=== PATIENT | male | born 1955 ===

== ENCOUNTER 2025-01-20 16:04 | Inpatient (IN) ==
[2025-01-20] MEDS ORDERED: IOPAMIDOL 100 ML BOTTLE IV ONE (16:05)
[2025-01-20] MEDS: LACTATED RINGERS 1,000 ML IV ONE (16:32)
[2025-01-20] MEDS: IPRATROPIUM/ALBUTEROL 3 ML AMPUL.NEB NEB ONE (17:00)
[2025-01-20] MEDS: VANCOMYCIN 1,000 MG in 0.9 % SODIUM CHLORIDE 250 ML IV ONE (17:01)
[2025-01-20] MEDS: VANCOMYCIN PER PHARMACY IV ONE (17:01)
[2025-01-20 17:07] LABS: Basophils # (Auto) 0.01 K/mcL (0.00-0.30); Basophils % (Auto) 0.1 % (0.0-2.0); Eosinophils # (Auto) 0.02 K/mcL (0.00-0.70); Eosinophils % (Auto) 0.2 % (0.0-7.0); Hematocrit 37.5 % (40.1-51.0); Lymphocytes # (Auto) 0.68 K/mcL (1.50-4.80); Lymphocytes % (Auto) 5.8 % (15.5-49.0); Mean Cell Volume 100.5 fL (80.0-100.0); Mean Platelet Volume 10.5 fL (8.8-12.5); Monocytes # (Auto) 0.79 K/mcL (0.10-0.90); Monocytes % (Auto) 6.7 % (1.0-12.0); Neutrophils % (Auto) 85.9 % (38.0-78.0); Platelet Count 327 K/mcL (140-440); RBC 3.73 M/mcL (4.63-6.08); WBC 11.8 K/mcL (4.5-11.0)
[2025-01-20] MEDS: MAGNESIUM SULFATE 2 GM/50 ML BAG IV ONE (17:08)
[2025-01-20] MEDS: CEFEPIME 2 GM VIAL IV ONE (17:18)
[2025-01-20] MEDS: VANCOMYCIN 750 MG in 0.9 % SODIUM CHLORIDE 250 ML IV ONE (17:18)
[2025-01-20 17:22] LABS: ALT/SGPT 25 U/L (<40); AST/SGOT 57 U/L (<40); Albumin 3.3 gm/dL (3.2-5.2); Alkaline Phosphatase 111 U/L (39-117); Bilirubin,Total 0.5 mg/dL (0.1-1.0); Blood Urea Nitrogen 25 mg/dL (8-23); Calcium 8.6 mg/dL (8.6-10.4); Carbon Dioxide 23 mmol/L (22-30); Chloride 110 mmol/L (96-108); Globulin 3.4 gm/dL (2.2-3.7); Glomerular Filtration Rate 90; Glucose 120 mg/dL (70-105); Potassium 3.4 mmol/L (3.3-5.1); Sodium 146 mmol/L (133-145)
[2025-01-20] MEDS: 0.9 % SODIUM CHLORIDE 500 ML IV ONE (18:00)
[2025-01-20 18:23] LABS: Appearance,Urine Clear (Clear); Bilirubin,Urine Negative (Negative); Color,Urine Yellow; Glucose,Urine (UA) Negative (Negative); Ketones,Urine 15 mg/dL (Negative); Leukocyte Esterase,Urine Negative /uL (Negative); Mucus,Urine Few /hpf; Nitrate,Urine Negative (Negative); Protein,Urine 100 mg/dL (Negative); Specific Gravity,Urine 1.025 (1.000-1.035); Urine Blood Small ery/mcL (Negative); Urine RBC 18 /hpf (0-3); Urine Squamous Epithelial Cell < 1 /hpf (0-4); Urine WBC 5 /hpf (0-4)
[2025-01-20 20:10] LABS: C-Reactive Protein 5.86 mg/dL (0.03-0.80)
[2025-01-20] MEDS ORDERED: LACTULOSE 20 GM/30 ML ORAL.SOL PO PRN (20:36)
[2025-01-20] MEDS ORDERED: SENNOSIDES 1 TABLET PO PRN (20:36)
[2025-01-20] MEDS ORDERED: ONDANSETRON 4 MG/2 ML VIAL IV PRN (20:36)
[2025-01-20] MEDS: LACTATED RINGERS 1,000 ML IV SCH (20:49)
[2025-01-20] MEDS: 0.9 % SODIUM CHLORIDE 10 ML SYRINGE IV SCH (20:49)
[2025-01-20] MEDS: HEPARIN 5,000 UNIT/ML VIAL SQ SCH (21:21)
[2025-01-20] MEDS: ACETAMINOPHEN 650 MG/65 ML BAG IV ONE (21:22)
[2025-01-20] MEDS: methylPREDNISolone SOD SUCC 125 MG/2 ML VIAL IV ONE (21:54)
[2025-01-20] MEDS: morphine 2 MG/ML VIAL IV PRN (22:58)
[2025-01-20] MEDS ORDERED: IPRATROPIUM/ALBUTEROL 3 ML AMPUL.NEB NEB SCH (23:00)
[2025-01-20] MEDS: IPRATROPIUM/ALBUTEROL 3 ML AMPUL.NEB NEB SCH (23:11)
[2025-01-21] MEDS: HYDROmorphone 1 MG/ML SYRINGE IV ONE (04:47)
[2025-01-21] MEDS: HYDROmorphone 1 MG/ML SYRINGE ONE (05:20)
[2025-01-21] MEDS: IPRATROPIUM/ALBUTEROL 3 ML AMPUL.NEB NEB PRN (05:50)
[2025-01-21 06:48] LABS: Basophils # (Auto) 0.03 K/mcL (0.00-0.30); Basophils % (Auto) 0.2 % (0.0-2.0); Eosinophils # (Auto) 0.02 K/mcL (0.00-0.70); Eosinophils % (Auto) 0.1 % (0.0-7.0); Hemoglobin 10.6 g/dL (13.7-17.5); Lymphocytes # (Auto) 0.86 K/mcL (1.50-4.80); Lymphocytes % (Auto) 6.2 % (15.5-49.0); Mean Cell Volume 105.3 fL (80.0-100.0); Mean Corpuscular HGB Conc 31.2 g/dL (31.0-36.0); Mean Platelet Volume 9.7 fL (8.8-12.5); Monocytes # (Auto) 1.04 K/mcL (0.10-0.90); Monocytes % (Auto) 7.5 % (1.0-12.0); Neutrophils % (Auto) 85.1 % (38.0-78.0); Platelet Count 334 K/mcL (140-440); RBC 3.23 M/mcL (4.63-6.08); Red Cell Distribution Width 13.3 % (11.5-14.5)
[2025-01-21 07:26] LABS: ALT/SGPT 22 U/L (<40); AST/SGOT 53 U/L (<40); Albumin 2.9 gm/dL (3.2-5.2); Alkaline Phosphatase 93 U/L (39-117); Bilirubin,Direct 0.3 mg/dL (<0.3); Bilirubin,Total 0.4 mg/dL (0.1-1.0); Blood Urea Nitrogen 24 mg/dL (8-23); Calcium 8.3 mg/dL (8.6-10.4); Carbon Dioxide 21 mmol/L (22-30); Chloride 114 mmol/L (96-108); Globulin 2.9 gm/dL (2.2-3.7); Glomerular Filtration Rate 101; Glucose 85 mg/dL (70-105); Lactate Dehydrogenase 518 U/L (135-225); Phosphorous 2.1 mg/dL (2.5-4.5); Potassium 3.4 mmol/L (3.3-5.1); Sodium 148 mmol/L (133-145); Triglycerides 81 mg/dL (<150); Uric Acid 4.4 mg/dL (2.5-8.0)
[2025-01-21] MEDS: DEXAMETHASONE 10 MG/ML VIAL IV SCH (08:01)
[2025-01-21] MEDS: PANTOPRAZOLE 40 MG VIAL IV SCH (08:02)
[2025-01-21] MEDS: 0.45 % SODIUM CHLORIDE 1,000 ML IV SCH (08:29)
[2025-01-21] MEDS ORDERED: methylPREDNISolone SOD SUCC 125 MG/2 ML VIAL IV SCH (09:00)
[2025-01-21] MEDS ORDERED: DOXYCYCLINE HYCLATE 100 MG TABLET.ORL PO SCH (09:00)
[2025-01-21] MEDS: REMDESIVIR 100 MG in 0.9 % SODIUM CHLORIDE 250 ML IV SCH (10:51)
[2025-01-21] MEDS: morphine 2 MG/ML VIAL IV PRN (11:58)
[2025-01-21] MEDS: HYDROcodone/APAP 5/325MG TABLET PO PRN (20:51)
[2025-01-21] MEDS: LISINOPRIL 2.5 MG TABLET PO SCH (20:51)
[2025-01-21] MEDS: GABAPENTIN 300 MG CAPSULE PO SCH (20:51)
[2025-01-21] MEDS: QUEtiapine 100 MG TABLET PO SCH (20:52)
[2025-01-21] MEDS: morphine 2 MG/ML VIAL IV ONE (22:15)
[2025-01-21] MEDS: LORazepam 2 MG/ML VIAL IV ONE (22:15)
[2025-01-21] MEDS: METHOCARBAMOL 1,000 MG/10 ML VIAL IV ONE (22:15)
[2025-01-21] MEDS: LORazepam 2 MG/ML VIAL ONE (22:16)
[2025-01-21] MEDS: morphine 2 MG/ML VIAL ONE (22:17)
[2025-01-21] MEDS: METHOCARBAMOL 1,000 MG/10 ML VIAL ONE (22:17)
[2025-01-21] MEDS: POTASSIUM PHOSPHATE 40 MEQ in DEXTROSE 5% IN WATER 500 ML IV ONE (23:47)
[2025-01-21] MEDS: POTASSIUM PHOSPHATE 66 MEQ/15 ML VIAL IV ONE (23:48)
[2025-01-22] MEDS: NALOXONE HCL 0.4 MG/ML VIAL IV PRN (02:09)
[2025-01-22] MEDS: KETOROLAC 15 MG/ML VIAL IV ONE (02:35)
[2025-01-22] MEDS: LORazepam 2 MG/ML VIAL IV ONE ×3 (02:36→16:04)
[2025-01-22] MEDS: morphine 4 MG/ML VIAL IV ONE (02:36)
[2025-01-22] MEDS: ACETAMINOPHEN 1,000 MG/100 ML BAG IV ONE ×3 (02:37→08:37)
[2025-01-22] MEDS: KETOROLAC 15 MG/ML VIAL ONE (03:05)
[2025-01-22] MEDS: LORazepam 2 MG/ML VIAL ONE ×2 (03:05→16:07)
[2025-01-22] MEDS: morphine 2 MG/ML VIAL ONE ×2 (03:05→16:07)
[2025-01-22 05:42] LABS: Basophils # (Auto) 0.02 K/mcL (0.00-0.30); Basophils % (Auto) 0.2 % (0.0-2.0); Eosinophils # (Auto) 0 K/mcL (0.00-0.70); Eosinophils % (Auto) 0 % (0.0-7.0); Hematocrit 34.4 % (40.1-51.0); Hemoglobin 10.8 g/dL (13.7-17.5); Lymphocytes % (Auto) 7.1 % (15.5-49.0); Mean Cell Volume 101.5 fL (80.0-100.0); Mean Corpuscular HGB Conc 31.4 g/dL (31.0-36.0); Mean Platelet Volume 9.4 fL (8.8-12.5); Monocytes # (Auto) 0.98 K/mcL (0.10-0.90); Monocytes % (Auto) 7.7 % (1.0-12.0); Neutrophils % (Auto) 83.7 % (38.0-78.0); Platelet Count 325 K/mcL (140-440); RBC 3.39 M/mcL (4.63-6.08); Red Cell Distribution Width 13.4 % (11.5-14.5); WBC 12.7 K/mcL (4.5-11.0)
[2025-01-22 06:07] LABS: ALT/SGPT 23 U/L (<40); AST/SGOT 56 U/L (<40); Albumin 2.8 gm/dL (3.2-5.2); Albumin/Globulin Ratio 1.1 (1.0-2.3); Alkaline Phosphatase 91 U/L (39-117); Bilirubin,Direct 0.3 mg/dL (<0.3); Bilirubin,Total 0.4 mg/dL (0.1-1.0); Blood Urea Nitrogen 18 mg/dL (8-23); Calcium 8.1 mg/dL (8.6-10.4); Carbon Dioxide 26 mmol/L (22-30); Chloride 108 mmol/L (96-108); Globulin 2.5 gm/dL (2.2-3.7); Glomerular Filtration Rate 101; Glucose 96 mg/dL (70-105); Lactate Dehydrogenase 528 U/L (135-225); Phosphorous 2.9 mg/dL (2.5-4.5); Potassium 3.8 mmol/L (3.3-5.1); Sodium 143 mmol/L (133-145); Triglycerides 68 mg/dL (<150); Uric Acid 4.2 mg/dL (2.5-8.0)
[2025-01-22] MEDS: LEVOTHYROXINE 50 MCG TABLET PO SCH (08:36)
[2025-01-22] MEDS: GABAPENTIN 300 MG CAPSULE PO SCH (08:36)
[2025-01-22] MEDS: METHOCARBAMOL 1,000 MG/10 ML VIAL IV PRN ×2 (08:38→19:32)
[2025-01-22] MEDS: DULoxetine 30 MG CAPSULE PO SCH (08:50)
[2025-01-22] MEDS: METOPROLOL SUCCINATE 25 MG TAB.XL.24H PO SCH (08:50)
[2025-01-22] MEDS: ASPIRIN 81 MG TAB.CHEW PO SCH (08:50)
[2025-01-22] MEDS: ATORVASTATIN 40 MG TABLET PO SCH (08:50)
[2025-01-22] MEDS: SPIRONOLACTONE 25 MG TABLET PO SCH (08:50)
[2025-01-22] MEDS: MULTIVIT,THER IRON,CA,FA & MIN 1 TABLET PO SCH (08:50)
[2025-01-22] MEDS: LEVOFLOXACIN 750 MG/150 ML BAG IV SCH (08:51)
[2025-01-22] MEDS: TOCILIZUMAB 400 MG in 0.9 % SODIUM CHLORIDE 80 ML IV ONE (09:15)
[2025-01-22] MEDS: VITAMIN D3 25 MCG TABLET PO SCH (09:20)
[2025-01-22] MEDS: morphine 2 MG/ML VIAL IV ONE (16:04)
[2025-01-22] MEDS: NICOTINE 7 MG PATCH TOPICAL SCH (16:15)
[2025-01-22] MEDS: morphine 2 MG/ML VIAL IV PRN (17:49)
[2025-01-22] MEDS: LORazepam 2 MG/ML VIAL IV PRN (17:49)
[2025-01-22] MEDS ORDERED: DEXMEDETOMIDINE 400 MCG in PREMIX 1 BAG IV SCH (18:00)
[2025-01-22] MEDS: KETAMINE 10 MG/ML ML IV ONE (19:19)
[2025-01-22] MEDS: DEXMEDETOMIDINE 400 MCG in PREMIX 1 BAG IV PRN (20:33)
[2025-01-22] MEDS: DEXMEDETOMIDINE 100 ML IV ONE (20:33)
[2025-01-22] MEDS: IPRATROPIUM/ALBUTEROL 3 ML AMPUL.NEB NEB SCH (22:25)
[2025-01-23] MEDS: DEXMEDETOMIDINE 100 ML IV ONE ×4 (03:21→21:01)
[2025-01-23 06:10] LABS: Basophils # (Auto) 0.01 K/mcL (0.00-0.30); Basophils % (Auto) 0.1 % (0.0-2.0); Eosinophils # (Auto) 0.01 K/mcL (0.00-0.70); Eosinophils % (Auto) 0.1 % (0.0-7.0); Hematocrit 33.4 % (40.1-51.0); Hemoglobin 10.8 g/dL (13.7-17.5); Lymphocytes # (Auto) 0.68 K/mcL (1.50-4.80); Lymphocytes % (Auto) 6.8 % (15.5-49.0); Mean Corpuscular HGB Conc 32.3 g/dL (31.0-36.0); Mean Platelet Volume 9.8 fL (8.8-12.5); Neutrophils % (Auto) 86.9 % (38.0-78.0); Platelet Count 314 K/mcL (140-440); RBC 3.34 M/mcL (4.63-6.08)
[2025-01-23 06:22] LABS: ALT/SGPT 25 U/L (<40); AST/SGOT 65 U/L (<40); Albumin 2.6 gm/dL (3.2-5.2); Alkaline Phosphatase 86 U/L (39-117); Bilirubin,Direct 0.3 mg/dL (<0.3); Bilirubin,Total 0.4 mg/dL (0.1-1.0); Blood Urea Nitrogen 15 mg/dL (8-23); Calcium 7.8 mg/dL (8.6-10.4); Carbon Dioxide 22 mmol/L (22-30); Chloride 106 mmol/L (96-108); Globulin 2.5 gm/dL (2.2-3.7); Glomerular Filtration Rate 109; Glucose 101 mg/dL (70-105); Lactate Dehydrogenase 616 U/L (135-225); Phosphorous 2.2 mg/dL (2.5-4.5); Potassium 3.4 mmol/L (3.3-5.1); Sodium 139 mmol/L (133-145); Triglycerides 57 mg/dL (<150)
[2025-01-23] MEDS: POTASSIUM PHOSPHATE 40 MEQ in DEXTROSE 5% IN WATER 500 ML IV ONE (09:03)
[2025-01-24] MEDS: morphine 2 MG/ML VIAL IV PRN (02:13)
[2025-01-24] MEDS: LORazepam 2 MG/ML VIAL IV PRN (02:15)
[2025-01-24] MEDS: morphine 2 MG/ML VIAL ONE ×3 (02:16→06:20)
[2025-01-24] MEDS: LORazepam 2 MG/ML VIAL ONE ×3 (02:17→06:20)
[2025-01-24] MEDS: DEXMEDETOMIDINE 100 ML IV ONE ×5 (04:03→21:31)
[2025-01-24] MEDS: LACTOPEROXI/GLUC OXID/POT THIO 1 EACH GEL..EA. TOPICAL PRN (04:25)
[2025-01-24 05:50] LABS: Basophils # (Auto) 0.02 K/mcL (0.00-0.30); Basophils % (Auto) 0.2 % (0.0-2.0); Eosinophils # (Auto) 0.03 K/mcL (0.00-0.70); Eosinophils % (Auto) 0.3 % (0.0-7.0); Hematocrit 34.5 % (40.1-51.0); Hemoglobin 11.5 g/dL (13.7-17.5); Lymphocytes # (Auto) 0.71 K/mcL (1.50-4.80); Lymphocytes % (Auto) 6.8 % (15.5-49.0); Mean Cell Volume 96.9 fL (80.0-100.0); Mean Corpuscular HGB Conc 33.3 g/dL (31.0-36.0); Mean Platelet Volume 9.9 fL (8.8-12.5); Monocytes # (Auto) 0.62 K/mcL (0.10-0.90); Monocytes % (Auto) 5.9 % (1.0-12.0); Neutrophils % (Auto) 85.9 % (38.0-78.0); Platelet Count 308 K/mcL (140-440); RBC 3.56 M/mcL (4.63-6.08); WBC 10.5 K/mcL (4.5-11.0)
[2025-01-24 06:15] LABS: ALT/SGPT 27 U/L (<40); AST/SGOT 66 U/L (<40); Albumin 2.6 gm/dL (3.2-5.2); Albumin/Globulin Ratio 1.1 (1.0-2.3); Alkaline Phosphatase 84 U/L (39-117); Bilirubin,Direct 0.3 mg/dL (<0.3); Bilirubin,Total 0.4 mg/dL (0.1-1.0); Blood Urea Nitrogen 14 mg/dL (8-23); Calcium 7.7 mg/dL (8.6-10.4); Carbon Dioxide 20 mmol/L (22-30); Chloride 101 mmol/L (96-108); Globulin 2.3 gm/dL (2.2-3.7); Glomerular Filtration Rate 101; Glucose 111 mg/dL (70-105); Lactate Dehydrogenase 648 U/L (135-225); Phosphorous 2.2 mg/dL (2.5-4.5); Potassium 3.7 mmol/L (3.3-5.1); Sodium 133 mmol/L (133-145); Triglycerides 85 mg/dL (<150); Uric Acid 2.9 mg/dL (2.5-8.0)
[2025-01-24] MEDS: OLANZapine 10 MG VIAL IV SCH (09:35)
[2025-01-24] MEDS: DEXTROSE 5%-LR 1,000 ML IV SCH (10:04)
[2025-01-24] MEDS: FUROSEMIDE 40 MG/4 ML VIAL IV ONE ×3 (10:04→18:05)
[2025-01-24] MEDS: NOREPINEPHRINE BITARTRATE 16 MG in 0.9 % SODIUM CHLORIDE 234 ML IV PRN (10:04)
[2025-01-24] MEDS: OLANZapine 10 MG VIAL ONE (10:05)
[2025-01-24] MEDS: 0.9 % SODIUM CHLORIDE 250 ML IV SCH (10:05)
[2025-01-24] MEDS ORDERED: OLANZapine 10 MG VIAL IM PRN (10:33)
[2025-01-24] MEDS: POTASSIUM PHOSPHATE 40 MEQ in DEXTROSE 5% IN WATER 500 ML IV ONE (10:55)
[2025-01-24] MEDS: IPRATROPIUM/ALBUTEROL 3 ML AMPUL.NEB NEB SCH (14:05)
[2025-01-24] MEDS: DEXTROSE 5%-1/2NS 1,000 ML IV SCH (14:09)
[2025-01-24] MEDS ORDERED: 0.9 % SODIUM CHLORIDE 10 ML SYRINGE IV SCH (21:00)
[2025-01-25] MEDS: DEXMEDETOMIDINE 100 ML IV ONE ×4 (02:36→20:13)
[2025-01-25 06:13] LABS: Basophils # (Auto) 0.02 K/mcL (0.00-0.30); Basophils % (Auto) 0.2 % (0.0-2.0); Eosinophils # (Auto) 0.02 K/mcL (0.00-0.70); Eosinophils % (Auto) 0.2 % (0.0-7.0); Hematocrit 33.5 % (40.1-51.0); Hemoglobin 10.4 g/dL (13.7-17.5); Mean Cell Volume 102.8 fL (80.0-100.0); Monocytes # (Auto) 0.62 K/mcL (0.10-0.90); Monocytes % (Auto) 5.6 % (1.0-12.0); Neutrophils % (Auto) 84.2 % (38.0-78.0); Platelet Count 281 K/mcL (140-440); RBC 3.26 M/mcL (4.63-6.08); Red Cell Distribution Width 13.6 % (11.5-14.5); WBC 11.1 K/mcL (4.5-11.0)
[2025-01-25 06:44] LABS: Bilirubin,Direct < 0.2 mg/dL (0-0.3)
[2025-01-25 10:26] LABS: ALT/SGPT 33 U/L (<40); AST/SGOT 73 U/L (<40); Albumin 2.6 gm/dL (3.2-5.2); Albumin/Globulin Ratio 1.1 (1.0-2.3); Alkaline Phosphatase 85 U/L (39-117); Bilirubin,Direct 0.2 mg/dL (<0.3); Bilirubin,Total 0.5 mg/dL (0.1-1.0); Blood Urea Nitrogen 14 mg/dL (8-23); C-Reactive Protein 1.53 mg/dL (0.03-0.80); Calcium 7.9 mg/dL (8.6-10.4); Carbon Dioxide 20 mmol/L (22-30); Chloride 101 mmol/L (96-108); Globulin 2.4 gm/dL (2.2-3.7); Glomerular Filtration Rate 95; Glucose 149 mg/dL (70-105); Lactate Dehydrogenase 846 U/L (135-225); Phosphorous 2.9 mg/dL (2.5-4.5); Potassium 4.3 mmol/L (3.3-5.1); Sodium 134 mmol/L (133-145); Triglycerides 91 mg/dL (<150); Uric Acid 3.7 mg/dL (2.5-8.0)
[2025-01-25] MEDS: hydrOXYzine 50 MG/ML VIAL IM PRN (14:36)
[2025-01-25] MEDS: HYDROmorphone 0.5 MG/0.5 ML SYRINGE IV PRN ×2 (15:40→19:03)
[2025-01-25] MEDS: AMIODARONE 150 MG/3 ML VIAL IV ONE ×2 (16:45)
[2025-01-25] MEDS: AMIODARONE 150 MG in DEXTROSE 5% IN WATER 50 ML IV ONE (16:46)
[2025-01-26] MEDS: DEXMEDETOMIDINE 100 ML IV ONE ×3 (01:30→11:39)
[2025-01-26 06:35] LABS: Basophils # (Auto) 0 K/mcL (0.00-0.30); Basophils % (Auto) 0 % (0.0-2.0); Eosinophils # (Auto) 0.04 K/mcL (0.00-0.70); Eosinophils % (Auto) 0.3 % (0.0-7.0); Hemoglobin 11.5 g/dL (13.7-17.5); Lymphocytes # (Auto) 0.87 K/mcL (1.50-4.80); Lymphocytes % (Auto) 7.5 % (15.5-49.0); Mean Cell Volume 98.3 fL (80.0-100.0); Mean Corpuscular HGB Conc 32.9 g/dL (31.0-36.0); Monocytes # (Auto) 0.77 K/mcL (0.10-0.90); Monocytes % (Auto) 6.6 % (1.0-12.0); Neutrophils % (Auto) 85.2 % (38.0-78.0); Platelet Count 254 K/mcL (140-440); RBC 3.56 M/mcL (4.63-6.08); Red Cell Distribution Width 13.4 % (11.5-14.5); WBC 11.7 K/mcL (4.5-11.0)
[2025-01-26 07:29] LABS: ALT/SGPT 37 U/L (<40); AST/SGOT 82 U/L (<40); Albumin 2.7 gm/dL (3.2-5.2); Albumin/Globulin Ratio 1.2 (1.0-2.3); Alkaline Phosphatase 92 U/L (39-117); Bilirubin,Direct 0.2 mg/dL (<0.3); Bilirubin,Total 0.4 mg/dL (0.1-1.0); Blood Urea Nitrogen 12 mg/dL (8-23); Calcium 8.3 mg/dL (8.6-10.4); Carbon Dioxide 23 mmol/L (22-30); Chloride 102 mmol/L (96-108); Globulin 2.2 gm/dL (2.2-3.7); Glomerular Filtration Rate 101; Glucose 127 mg/dL (70-105); Lactate Dehydrogenase 1020 U/L (135-225); Phosphorous 2.4 mg/dL (2.5-4.5); Potassium 3.8 mmol/L (3.3-5.1); Sodium 134 mmol/L (133-145); Triglycerides 137 mg/dL (<150); Uric Acid 3.3 mg/dL (2.5-8.0)
[2025-01-26] MEDS ORDERED: LACTOPEROXI/GLUC OXID/POT THIO 1 EACH GEL..EA. TOPICAL PRN (14:34)
[2025-01-26] MEDS: LORazepam 2 MG/ML VIAL IV PRN (14:48)
[2025-01-26] MEDS: morphine 4 MG/ML VIAL IV PRN (14:49)
[2025-01-26] MEDS: morphine 4 MG/ML VIAL NEB PRN (15:08)
[2025-01-26] MEDS: ONDANSETRON 4 MG ODT TABLET SL PRN (16:41)
[2025-01-26] MEDS: DOCUSATE SODIUM 100 MG CAPSULE PO SCH (20:28)
== END 2025-01-27 02:10 | disposition expired | DRG 177 ==
LOC: ED 16:04 → ICU 20:31
PROVIDERS: ADMIT Student in an Organized Health Care Education/Training Program; ATTEND Student in an Organized Health Care Education/Training Program